=== PATIENT | female | born 2000 | race African-American/Black ===

== ENCOUNTER 2021-11-18 17:35 | Emergency (ER) | payer MEDICAID | END 2021-11-18 23:33 | disposition left against medical advice (07) | LOC: ER 17:35 | DX: U07.1 COVID-19 (principal); J02.9 Acute pharyngitis, unspecified; Z53.21 Procedure and treatment not carried out due to patient leaving prior to being seen by health care provider | CPT/HCPCS: 36415; 71045; 87426 ==